=== PATIENT | male | born 1980 | race Hispanic/Latino ===

== ENCOUNTER 2020-03-04 10:15 | Emergency (ER) | payer OTHER, SELFPAY ==
[2020-03-04] MEDS ORDERED: ACETAMINOPHEN EXTRA STRENGTH 500 MG TABLET ONE ×2 (10:38→12:11)
[2020-03-04 10:46] LABS: BASOPHILS % (AUTO) 0.2 % (0.0-5.0); EOSINOPHILS % (AUTO) 0.2 % (0.0-8.0); HEMATOCRIT 40.9 % (42-54); LYMPHOCYTES % (AUTO) 14.4 % (21.0-51.0); MEAN CORPUSCULAR HEMOGLOBIN 29.2 pg (27.0-33.0); MEAN CORPUSCULAR HGB CONC 33.7 g/dL (32.0-36.0); MEAN CORPUSCULAR VOLUME 86.5 fL (79-99); MONOCYTES % (AUTO) 3.5 % (3.0-13.0); NEUTROPHILS % (AUTO) 81.2 % (40.0-77.0); PLATELET COUNT (AUTO) 154 K/uL (130-400); RED BLOOD CELL COUNT(AUTO) 4.73 MIL/uL (4.50-6.20); RED CELL DISTRIBUTION WIDTH 12.3 % (11.0-15.5); WHITE BLOOD COUNT (AUTO) 6.3 K/uL (4.8-10.8)
[2020-03-04 10:54] LABS: INR 0.92 (0.85-1.15); PARTIAL THROMBOPLASTIN TIME 34.5 SEC (26.3-35.5)
[2020-03-04 10:57] LABS: BILIRUBIN,TOTAL 0.5 mg/dL (0.2-1.0); CREATININE 1.1 mg/dL (0.5-1.5); POTASSIUM 3.7 mmol/L (3.5-5.1); TOTAL PROTEIN, SERUM 7.3 g/dL (6.0-8.3)
[2020-03-04 11:03] LABS: CREATINE KINASE, TOTAL 56 U/L (21-232)
[2020-03-04 11:05] LABS: CRP QUANTITATIVE 285.8 mg/L (0.00-9.0)
[2020-03-04 11:18] LABS: B-TYPE NATRIURETIC PEPTIDE 45 pg/mL (0-100)
[2020-03-04 11:49] LABS: FERRITIN 1674 ng/mL (30-400)
[2020-03-04] MEDS ORDERED: ALBUTEROL INHALER 90MCG/INH IH ONE (12:11)
[2020-03-04] MEDS ORDERED: AZITHROMYCIN 250 MG TABLET PO ONE (12:11)
== END 2020-03-04 14:19 | disposition home or self-care (01) ==
LOC: EDH 10:15
DX: J12.89 Other viral pneumonia (principal); Z20.828 Contact with and (suspected) exposure to other viral communicable diseases; E11.9 Type 2 diabetes mellitus without complications
CPT/HCPCS: 36415; 71045; 80053; 82550; 82728; 83880; 84145; 84484; 85025; 85378; 85610; 85730; 86140; 93005; 99285; U0003